=== PATIENT | male | born 1965 | race Caucasian/White ===

== ENCOUNTER → 2017-06-21 | Outpatient (CLI) | payer MEDICAID ==
--- NOTE | 2017-06-21 14:09 | RADIOLOGY REPORT PS360 ---
EXAM: LUMBAR SPINE 5 VIEWS HISTORY: RT SIDED LOW BACK PAIN ORDERING PHYSICIAN: LASHONDA LANDAVERDE PATIENT AGE: 52 years COMPARISON: [id number] FINDINGS: Normal alignment. No fracture or dislocation. No lytic or blastic change. There is degenerative disc disease at T11-T12 and T12-L1 there are bilateral pars defects at L5 with minimal anterolisthesis of L5 on S1. Facet hypertrophic changes are present at L5-S1. There is mild lumbar curvature convex left. Bony hypertrophic changes are present along the right lower ilium and acetabular region laterally and may be due to prior trauma. Please correlate clinically. If there has not been prior trauma then developing exostosis/osteochondroma is are considered. IMPRESSION: 1. No acute finding. 2. Grade 1 spondylolytic spondylolisthesis of L5 on S1 with degenerative changes at the thoracic lumbar junction. 3. Hypertrophic changes along the right acetabulum and inferior ilium on the right.
== END ==
LOC: RAD 12:29
DX: M54.5 Low back pain (principal)